=== PATIENT | male | born 1970 | race Caucasian/White ===

== ENCOUNTER 2022-01-11 08:39 | Emergency (ER) | payer OTHER, SELFPAY ==
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
[2022-01-11 08:52] VITALS: BP 128/69; PULSE 103; RESP 19; TEMP 36.6; O2SAT 100; BMI 28.1
[2022-01-11 11:32] LABS: MANUAL DIFF FLAG NO
[2022-01-11 11:33] LABS: Basophils Percent Auto 0.3 % (0-2); Eosinophils Percent Auto 0.3 % (0-4); Hematocrit 50.9 % (42.0-52.0); Hemoglobin 17.3 g/dl (14.0-18.0); Imm Gran Abs Auto 0.06 X10*3/uL (0.00-0.03); Imm Gran Pct Auto 0.8 % (0.0-0.4); Lymphocytes Absolute Auto 1.4 X10*3/uL (1.2-4.9); Lymphocytes Percent Auto 17.4 % (20-40); Mean Corpuscular Hemoglobin 28.8 pg (27.0-33.0); Mean Corpuscular Volume 84.8 fL (80.0-98.0); Mean Platelet Volume 10.3 fL (9.4-12.4); Monocytes Absolute Auto 0.7 X10*3/uL (0.1-1.2); Monocytes Percent Auto 8.5 % (2-11); Neutrophils Absolute Auto 5.6 x10*3/uL (2.0-8.3); Neutrophils Percent Auto 72.7 % (45-73); Platelet Count 170 X10*3/uL (160-400); Red Cell Distribution Width 13.5 % (11.0-16.0); White Blood Count 7.8 X10*3/uL (4.8-10.8)
[2022-01-11 11:51] VITALS: BP 150/97; PULSE 86; RESP 18; O2SAT 96
[2022-01-11 11:53] LABS: Anion Gap 17 (12-20); Blood Urea Nitrogen 16 mg/dL (9-16); Calcium 9.4 mg/dL (8.4-10.2); Carbon Dioxide 24 mmol/L (22-29); Chloride 102 mmol/L (96-108); Creatinine Clr Calc Pharmacy 81.8; Estimated Glomerular Filt Rate > 60; Glucose Random 89 mg/dL (60-115); Sodium 139 mmol/L (135-145)
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
[2022-01-11] MEDS: ondansetron HCL 4 MG/2 ML VIAL IVPUSH (12:04)
[2022-01-11] MEDS: 0.9 % Sodium Chloride 1,000 ML 999 ML IV (12:04)
[2022-01-11 13:14] LABS: Influenza A PCR NEGATIVE (Negative); Influenza B PCR NEGATIVE (Negative); Resp Syncy Virus RNA Qual PCR NEGATIVE (Negative); SARS COV2 PCR INHOUSE POSITIVE (Negative)
[2022-01-11 14:40] VITALS: BP 166/98; PULSE 74; RESP 18; O2SAT 99
== END 2022-01-11 14:50 | disposition home or self-care (01) ==
PROVIDERS: Emergency Provider Emergency Medicine
DX: U07.1 COVID-19 (principal); R11.2 Nausea with vomiting, unspecified; R51.9 Headache, unspecified; R42 Dizziness and giddiness; F12.90 Cannabis use, unspecified, uncomplicated; Z87.891 Personal history of nicotine dependence
CPT/HCPCS: 0241U; 36415; 71046; 80048; 85025; 96361; 96374; 99284; J2405

== ENCOUNTER 2024-02-15 09:09 | Emergency (ER) | payer OTHER, SELFPAY ==
--- NOTE | ~2024-02-15 | XR_ITS ---
EXAMINATION: XR ANKLE, LEFT CLINICAL INFORMATION: Fall COMPARISON: None available. TECHNIQUE: AP, lateral, and mortise views of the left ankle. FINDINGS: No fracture. Alignment is anatomic. No erosions. Joint spaces are maintained. Soft tissues are normal. XR/XR ankle LT min 3V IMPRESSION: Normal left ankle. Electronically signed by: Kamar San DO 02/15/2024 01:21 PM EDT
--- NOTE | ~2024-02-15 | XR_ITS ---
EXAMINATION: XR FOOT, LEFT CLINICAL INFORMATION: Fall COMPARISON: None available. TECHNIQUE: AP, lateral, and oblique views of the left foot. FINDINGS: The bones are intact. No fracture. Alignment is anatomic. Mild degenerative change of the first metatarsophalangeal joint. Tiny Achilles enthesophyte. XR/XR foot LT min 3V IMPRESSION: No acute bony abnormality Electronically signed by: Allyson Argueta MD 02/15/2024 01:46 PM EDT
[2024-02-15 09:15] VITALS: BP 151/88; PULSE 87; RESP 20; TEMP 37.2; O2SAT 98; BMI 30.9
--- NOTE | 2024-02-15 09:23 | PC.NURSE ---
pt a&ox3, states he fell down a few stairs, pt states he did hit his head but no loc no thinners and states my head is fine pt rt ankle 310 pain. awaiting radiology
--- NOTE | 2024-02-15 09:25 | ED.LOWEXIN ---
HPI - Extremity Injury (Lower) General Chief Complaint: Extremity Injury, Lower Stated Complaint: L ankle inj work related Time Seen by Provider: 02/15/24 09:22 Source: patient Mode of arrival: wheelchair Limitations: no limitations History of Present Illness ED Provider: Pooja Paulson PA-C HPI Narrative: 54 yo male presents to the ER for evaluation of left ankle pain after he tripped down 3 stairs and fell this morning while at work. He states he twisted the ankle and heard a pop. He has been unable to bear weight since. He reports pain in the inside of the ankle and radiates to the top of the foot. He denies any knee or hip pain. No numbness, tingling. He has pain with any movement of the foot. MD complaint: ankle injury Onset (ago): hour(s) Type of Injury: inversion Severity: moderate Relieving factors: immobilization and rest Exacerbating factors: weight bearing, movement and palpation Related Data Allergies Allergy/AdvReac Type Severity Reaction Status Date / Time No Known Allergies Allergy Unverified 02/15/24 09:19 Review of Systems Review of Systems: Yes all other systems are reviewed and are negative [facility] Social History Social History Alcohol intake: former Patient Tobacco Use Status: Former Tobacco user Substance Use Type: Marijuana Advance Directives: No Advance Directives Information Provided: No Do you have a plan to hurt others: No Plan Physical Exam Vital Signs: Vital Signs: Last Vital Signs Temp 98.8 F 02/15/24 13:43 Pulse 84 02/15/24 13:43 Resp 18 02/15/24 13:43 BP 148/76 H 02/15/24 13:43 Pulse Ox 98 02/15/24 13:43 O2 Del Method Room Air 02/15/24 13:43 BMI result Body Mass Index 30.9 Appearance: Alert. Oriented X3. No acute distress. HEENT: normal inspection. normocephalic, atraumatic. Neck: normal inspection, nontender C-spine. no stepoff deformities. nontender soft tissues. FROM CVS: Normal heart rate and rhythm. Pulses normal. Respiratory: No respiratory distress. Skin: Skin warm and dry. Normal skin color. Normal skin turgor. No rashes. Extremities: left medial ankle with easy ecchymosis, moderate swelling. tenderness throughout medial ankle. no warmth or erythema. pain with dorsiflexion and plantarflexion. NV intact distally. Neuro: Oriented X 3. No motor deficit. No sensory deficit. Medical Decision Making Medical Decision Making MDM Narrative: 54 yo male presenting for evaluation of left ankle pain and swelling s/p fall down 3 stairs today. TTP on exam, pain with ROM. NV intact. XR showing normal ankle and foot. provided LEIGH ANN wrap, counseled on dx and tx including RICE, NSAIDS, supportive care. stable for d/c home Differential Diagnosis Differential Diagnoses: The differential diagnosis associated with the presentation includes ankle sprain, ankle fracture, ligamentous injury Independent Interpretation I performed an independent interpretation of an: Plain X-Ray Interpretation: no acute fx of foot or ankle Radiology Impression Discussion of test interpretation with radiology: I have reviewed the radiologist's reading. External Record Review External record reviewed: Outpatient record and Prior outpatient labs Prescription Management I considered prescription management with: Pain Medication Chronic Conditions Patient?s care impacted by: Other (obesity) Critical Care Time Critical Care Time Critical Care Time: No Discharge Plan Discharge Clinical Impression: Ankle sprain and strain Patient Disposition: Home, Self-Care Instructions: Ankle Sprain (DC) Additional Instructions: Your x-ray today was normal. Rest your ankle and elevate your foot when possible. Recommend LEIGH ANN wrap for support and compression. Use ice several times per day for the next 48 hours. You may bear weight as tolerated. If pain is too severe, use crutches until better. Take Motrin and/or Tylenol as needed for pain. Follow up with your doctor as needed. EXAMINATION: XR ANKLE, LEFT CLINICAL INFORMATION: Fall COMPARISON: None available. TECHNIQUE: AP, lateral, and mortise views of the left ankle. FINDINGS: No fracture. Alignment is anatomic. No erosions. Joint spaces are maintained. Soft tissues are normal. XR/XR ankle LT min 3V IMPRESSION: Normal left ankle. Referrals: [facility] [Provider Group] Stand Alone Forms: Work/School Release Interventions: ED Discharge Assessment Last Done: 02/15/24 13:43 Discharge Date/Time: 02/15/24 13:44 Print Language: Italian
[2024-02-15 13:43] VITALS: BP 148/76; PULSE 84; RESP 18; TEMP 37.1; O2SAT 98
--- NOTE | 2024-02-15 13:43 | PC.NURSE ---
pt ankle wrapped with devonte wrap, crutch training performed.
== END 2024-02-15 13:44 | disposition home or self-care (01) ==
PROVIDERS: Emergency Provider Emergency Medicine
DX: S93.402A Sprain of unspecified ligament of left ankle, initial encounter (principal); M25.572 Pain in left ankle and joints of left foot; W10.9XXA Fall (on) (from) unspecified stairs and steps, initial encounter; Y93.89 Activity, other specified; Y92.89 Other specified places as the place of occurrence of the external cause; Y99.0 Civilian activity done for income or pay; Z87.891 Personal history of nicotine dependence
CPT/HCPCS: 73610; 73630; 99282; 99283